=== PATIENT | female | born 1960 | race Caucasian/White ===

== ENCOUNTER 2018-11-16 07:46 | Day surgery (SDC) | payer OTHER ==
[~2018-11-16] VITALS: Ht 165.1 cm; Wt 63.8 kg
[2018-11-16] MEDS ORDERED: NO HOME MEDS (08:30)
[2018-11-16 08:38] VITALS: Ht 165.1 cm; Wt 63.8 kg
[2018-11-16 08:52] VITALS: BP 112/66; PULSE 69; RESP 18
[2018-11-16] MEDS ORDERED: MIDAZOLAM 1 MG/ML 2 ML INJ ONE ×2 (09:39→09:40)
[2018-11-16] MEDS ORDERED: FENTAnyl 50 MCG/ML VIAL ONE (09:40)
[2018-11-16 09:54] VITALS: BP 103/57; PULSE 72; RESP 24
== END 2018-11-16 11:30 | disposition home or self-care (01) ==
LOC: GIL 07:46
PROVIDERS: ATTEND Internal Medicine Gastroenterology
DX: Z12.11 Encounter for screening for malignant neoplasm of colon (principal); K64.4 Residual hemorrhoidal skin tags
CPT/HCPCS: 45378; J2250; J3010; Z7610